=== PATIENT | female | born 1990 ===

== ENCOUNTER 2017-03-25 10:20 | Emergency (ER) | payer OTHER ==
[2017-03-25 10:20] VITALS: BMI 27.1
[2017-03-25] MEDS ORDERED: Sodium Chloride 0.9% 1,000 ML IV ONE (11:12)
[2017-03-25 11:29] LABS: BASO % 0.8 % (0.0-2.0); EOS # 0.2 K/uL (0.0-0.7); EOS % 3.4 % (0.0-4.0); HEMATOCRIT 37.2 % (34.0-47.0); LYMPH # 1.5 K/uL (1.0-4.3); LYMPH % 30.6 % (20.0-40.0); MEAN CELL VOLUME 86.2 fL (81.0-99.0); MEAN CORPUSCULAR HEMOGLOBIN 28.7 pg (27.0-31.0); MEAN CORPUSCULAR HGB CONC 33.3 g/dL (33.0-37.0); MEAN PLATELET VOLUME 7.5 fL (7.2-11.7); MONO # 0.4 K/uL (0.0-0.8); MONO % 8.3 % (0.0-10.0); NRBC % 0.1 % (0.0-2.0); RED CELL DISTRIBUTION WIDTH 13.5 % (11.5-14.5); WHITE BLOOD COUNT 4.9 K/uL (4.8-10.8)
[2017-03-25 11:31] LABS: CHLORIDE 101 mmol/L (98-107); POTASSIUM 4.5 mmol/L (3.6-5.2); SODIUM 134 mmol/L (132-148)
[2017-03-25 11:33] LABS: GFR AFRICAN-AMERICAN > 60
[2017-03-25 11:34] LABS: BLOOD UREA NITROGEN 9 mg/dL (7-17); CALCIUM 8.7 mg/dl (8.6-10.4); CARBON DIOXIDE 24 mmol/L (22-30); GLUCOSE,RANDOM 79 mg/dL (65-105)
[2017-03-25 11:38] LABS: URINE BILIRUBIN NEGATIVE (NEGATIVE); URINE BLOOD 2+ (NEGATIVE); URINE COLOR Yellow (YELLOW); URINE GLUCOSE (UA) NORMAL (Normal); URINE KETONE NEGATIVE (NEGATIVE); URINE LEUKOCYTE ESTERASE NEG Leu/uL (Negative); URINE PROTEIN NEGATIVE (NEGATIVE); URINE UROBILINOGEN NORMAL mg/dL (0.2-1.0); WBC URINE 2 /hpf (0-5)
[2017-03-25 11:40] LABS: RBC URINE 3 /hpf (0-3)
[2017-03-25] MEDS ORDERED: Sodium Chloride 0.9% 1,000 ML ONE (12:33)
--- NOTE | 2017-03-25 12:51 | C.PDOC ---
History Of Present Illness 27 year old female, [id number], LNMP 12/22/16, recently diagnosed with spontaneous miscarriage, presents to ED for re-evaluation of development of right groin pain for the last 5 days. Patient was seen at [facility] yesterday and was diagnosed with UTI and spontaneous miscarriage in progress. Patient states that right groin pain still persists but admits that vaginal bleeding has improved. Patient states she is compliant with the antibiotics prescribed yesterday, last dose early today. Otherwise, denies fever, chills, dizziness, lightheadedness, sore throat, chest pain, palpitations, shortness of breath, abd. pain, V/D, back pain, UTI sx. Ambulate to Ed for evaluation, not in any apparent distress. Time Seen by Provider: 03/25/17 10:44 Chief Complaint (Nursing): Abdominal Pain History Per: Patient History/Exam Limitations: no limitations Onset/Duration Of Symptoms: Days Current Symptoms Are (Timing): Still Present Radiation Of Pain To:: None Quality Of Discomfort: "Pain" Associated Symptoms: denies: Nausea, Vomiting, Diarrhea, Loss Of Appetite, Back Pain, Chest Pain, Constipation, Urinary Symptoms Exacerbating Factors: None Alleviating Factors: None Recent travel outside of the [place]: No Additional History Per: Patient Abnormal Vaginal Bleeding: Yes Past Medical History Reviewed: Historical Data, Nursing Documentation, Vital Signs Vital Signs: Last Vital Signs Temp 98.6 F 03/25/17 13:59 Pulse 70 03/25/17 13:59 Resp 20 03/25/17 13:59 BP 96/61 L 03/25/17 13:59 Pulse Ox 98 03/25/17 14:01 Family History: States: Unknown Family Hx - Social History Hx Alcohol Use: No Hx Substance Use: No - Immunization History Hx Tetanus Toxoid Vaccination: No Hx Influenza Vaccination: No Review Of Systems Except As Marked, All Systems Reviewed And Found Negative. Constitutional: Negative for: Fever, Chills Cardiovascular: Negative for: Chest Pain, Palpitations, Light Headedness Respiratory: Negative for: Cough, Shortness of Breath Gastrointestinal: Negative for: Nausea, Vomiting, Diarrhea, Constipation Genitourinary: Positive for: Vaginal Bleeding, Pelvic Pain (right groin pain). Negative for: Dysuria, Frequency, Hematuria, Vaginal Discharge Musculoskeletal: Negative for: Neck Pain, Back Pain Neurological: Negative for: Headache, Dizziness Physical Exam - Physical Exam Appears: Well, Non-toxic, No Acute Distress Skin: Normal Color, Warm, No Rash Head: Normacephalic Eye(s): bilateral: PERRL Nose: No Flaring, No Discharge Oral Mucosa: Moist Throat: No Erythema, No Exudate, No Drooling Neck: Supple Cardiovascular: Rhythm Regular, No Murmur, No JVD Respiratory: No Decreased Breath Sounds, No Accessory Muscle Use, No Stridor, No Wheezing Gastrointestinal/Abdominal: Soft, No Tenderness, No Distention, No Guarding Back: No CVA Tenderness Extremity: Normal ROM, No Pedal Edema, No Deformity Neurological/Psych: Oriented x3, Normal Speech, Normal Motor, Normal Sensation, Normal Reflexes ED Course And Treatment - Laboratory Results Result Diagrams: 03/25/17 11:18 03/25/17 11:18 Lab Interpretation: No Acute Changes O2 Sat by Pulse Oximetry: 98 (RA) Pulse Ox Interpretation: Normal - CT Scan/US US - Transvaginal Other Rad Studies (CT/US): Read By Radiologist, Radiology Report Reviewed CT/US Interpretation: Indication: Pain. Comparison: Ob transvaginal ultrasounds performed 03/24/17 and 03/22/17. Technique: Transvaginal pelvic ultrasound. Findings: The uterus measures approximately 7.3 x 4.2 x 6.9 cm. Retroverted. Endometrium measures approximately 0.9 cm in diameter. No evidence of intrauterine gestational sac. Echoes noted within the endometrial canal. Endometrium appears mildly vascular. Small fluid near noted near the uterine fundus. 1.1 x 0.8 x 1.1 cm cystic structure noted at the level of the cervix, possibly nabothian cyst however gestational sac is not excluded. The right ovary measures 2.9 x 1.9 x 2.5 cm. The left ovary measures 2.9 x 1.7 x 2.5 cm. Blood flow was demonstrated to both ovaries. Impression: No evidence of intrauterine gestational sac. Echoes noted within the endometrial canal. Endometrium appears mildly vascular. Small fluid near noted near the uterine fundus. 1.1 x 0.8 x 1.1 cm cystic structure noted at the level of the cervix, possibly nabothian cyst however gestational sac is not excluded. US - Abdomen Other Rad Studies (CT/US): Read By Radiologist, Radiology Report Reviewed CT/US Interpretation: Limited abdomen. Indication: RLQ pain, R/O APPENDICITIS. Comparison: None available. Findings: Limited provided sonographic views of the right lower quadrant appear grossly unremarkable. The appendix is not identified. No focal fluid collection is seen. Impression: The appendix is not identified. Please note that appendicitis cannot be excluded on the basis of this sonogram alone. Progress Note: Blood work, UA, abdomen US, OB transvaginal US ordered and reviewed. Case discussed with [employer]-on-call , blood work and imaging results review, pt is in stage of spontaenous miscarriage, beta quant trending down. As per [employer], no other intervention indicated at this time, pt is stable for discharge and outpt f/u now. May return in week to repeat US as need. results review and discusssed with pt. Afebrile, hemodynamicaly stable. Non- toxic. Abd: benign, (-) guarding, (-) rebound, (-) localized tenderness. back : (-) CVA tenderness. Pt understand and agrees with plan. STable for discharge now. Disposition - Disposition Disposition: HOME/ ROUTINE Disposition Time: 12:50 Condition: STABLE Additional Instructions: CONTINUE ANTIBIOTIC INITIATED BEFORE FOLLOW UP WITH [employer] IN 1-2 DAYS FOR RE-EVALUATION. MAY RETURN IN WEEK TO REPEAT US. RETURN TO ED IF ANY WORSENING OR NEW CHANGES. Prescriptions: traMADol [Ultram] 50 mg PO TID #7 tab Instructions: Spontaneous Miscarriage (ED) Forms: info[employer] (Mexican) Print Language: KINYARWANDA - Clinical Impression Clinical Impression: Spontaneous - PA / RECREATIONAL RESORT MANAGER / Resident Statement MD/DO has reviewed & agrees with the documentation as recorded. - Scribe Statement The provider has reviewed the documentation as recorded by the Frankibashley Taylor All medical record entries made by the Tod were at my direction and personally dictated by me. I have reviewed the chart and agree that the record accurately reflects my personal performance of the history, physical exam, medical decision making, and the department course for this patient. I have also personally directed, reviewed, and agree with the discharge instructions and disposition.
--- NOTE | 2017-03-25 12:53 | US ---
Limited abdomen Indication: RLQ pain, R/O APPENDICITIS Comparison: None available Findings: Limited provided sonographic views of the right lower quadrant appear grossly unremarkable. The appendix is not identified. No focal fluid collection is seen. Impression: The appendix is not identified. Please note that appendicitis cannot be excluded on the basis of this sonogram alone.
[2017-03-25 14:00] VITALS: BP 96/61; PULSE 70; RESP 20; TEMP 98.6; O2SAT 98
== END 2017-03-25 13:58 | disposition home or self-care (01) ==
LOC: C.ER 10:20
DX: O03.9 Complete or unspecified spontaneous abortion without complication (principal)
CPT/HCPCS: 76705; 76817; 80048; 81001; 84702; 85025; 96360; 99284; J7040